=== PATIENT | female | born 1990 | race Caucasian/White ===

== ENCOUNTER 2022-09-22 12:19 | Emergency (ER) | payer OTHER ==
[~2022-09-22] VITALS: Ht 165.1 cm; Wt 89.4 kg
[2022-09-22 12:42] VITALS: BP 167/105
== END 2022-09-22 12:54 | disposition home or self-care (01) ==
LOC: ER 12:20
DX: S61.230A Puncture wound without foreign body of right index finger without damage to nail, initial encounter (principal); Z88.6 Allergy status to analgesic agent; W46.0XXA Contact with hypodermic needle, initial encounter; Y93.89 Activity, other specified; Y92.89 Other specified places as the place of occurrence of the external cause; Y99.8 Other external cause status
CPT/HCPCS: 99281